=== PATIENT | female | born 1940 | race Caucasian/White ===

== ENCOUNTER → 2016-11-13 | Outpatient (CLI) | payer OTHER | END | disposition home or self-care (01) | LOC: CFH 12:29 | PROVIDERS: ATTEND Physician Assistant | DX: Z00.01 Encounter for general adult medical examination with abnormal findings (principal); Z23 Encounter for immunization; Z13.220 Encounter for screening for lipoid disorders; Z12.11 Encounter for screening for malignant neoplasm of colon; Z12.39 Encounter for other screening for malignant neoplasm of breast; M81.0 Age-related osteoporosis without current pathological fracture; G47.09 Other insomnia; I10 Essential (primary) hypertension; E03.9 Hypothyroidism, unspecified; T81.89XD Other complications of procedures, not elsewhere classified, subsequent encounter; N28.9 Disorder of kidney and ureter, unspecified; I09.9 Rheumatic heart disease, unspecified; E53.8 Deficiency of other specified B group vitamins; R93.8 Abnormal findings on diagnostic imaging of other specified body structures; Z85.3 Personal history of malignant neoplasm of breast | CPT/HCPCS: 71020 ==

== ENCOUNTER → 2017-08-20 | Outpatient (CLI) | payer OTHER | END | disposition home or self-care (01) | LOC: CFH 10:58 | PROVIDERS: ATTEND Physician Assistant | DX: Z13.820 Encounter for screening for osteoporosis (principal); M85.80 Other specified disorders of bone density and structure, unspecified site; N28.9 Disorder of kidney and ureter, unspecified; Z78.0 Asymptomatic menopausal state | CPT/HCPCS: 77080 ==

== ENCOUNTER → 2018-04-08 | Outpatient (CLI) | payer OTHER | END | disposition home or self-care (01) | LOC: CVU 10:17 | PROVIDERS: ATTEND Registered Nurse | DX: I65.23 Occlusion and stenosis of bilateral carotid arteries (principal); I10 Essential (primary) hypertension | CPT/HCPCS: 93880 ==

== ENCOUNTER → 2018-09-01 | Outpatient (CLI) | payer MEDICARE | END | disposition home or self-care (01) | LOC: CVU 10:46 | PROVIDERS: ATTEND Internal Medicine Cardiovascular Disease | DX: I08.3 Combined rheumatic disorders of mitral, aortic and tricuspid valves (principal); I10 Essential (primary) hypertension | CPT/HCPCS: 93306 ==

== ENCOUNTER 2019-03-23 12:35 | Outpatient (CLI) | payer MEDICARE | END 2019-03-23 23:59 | disposition home or self-care (01) | LOC: CVU 12:35 | PROVIDERS: ATTEND Internal Medicine Cardiovascular Disease | DX: I65.23 Occlusion and stenosis of bilateral carotid arteries (principal); I08.3 Combined rheumatic disorders of mitral, aortic and tricuspid valves; I11.0 Hypertensive heart disease with heart failure; I50.9 Heart failure, unspecified | CPT/HCPCS: 93306; 93356; 93880 ==

== ENCOUNTER 2019-12-16 13:42 | Inpatient (IN) | payer MEDICARE ==
[~2019-12-16] VITALS: Ht 167.6 cm; Wt 71.4 kg
[2019-12-16 14:48] LABS: MEAN CORPUSCULAR HEMOGLOBIN 31.6 pg (27.0-34.8); MEAN CORPUSCULAR HGB CONC 31.5 g/dL (32.4-35.8); MEAN PLATELET VOLUME 9.7 fL (7.4-10.4); PLATELET COUNT 304 x10^3/uL (130-400); RED BLOOD COUNT 4.08 x10^6/uL (3.82-5.3); RED CELL DISTRIBUTION WIDTH 15.9 % (9.6-15.2)
[2019-12-16 14:59] LABS: ALBUMIN 3.4 g/dL (3.4-5.0); CALCIUM 8.9 mg/dL (8.5-10.1); CHLORIDE 96 mmol/L (98-107)
[2019-12-16 15:02] LABS: ANION GAP 3 mmol/L (5-15)
[2019-12-16 15:18] LABS: MD YES
[2019-12-16 15:21] LABS: BAND#(MANUAL) 1.15 x10^3/uL; BANDS%(MANUAL) 9 % (0-7); BASOS#(MANUAL) 0.26 x10^3/uL (0-0.1); BASOS% (MANUAL) 2 % (0-1); EOS#(MANUAL) 0.64 x10^3/uL (0.0-0.4); EOS% (MANUAL) 5 % (1-7); LYMPH#(MANUAL) 1.79 x10^3/uL (1-3.4); LYMPHS% (MANUAL) 14 % (22-44); MONOS#(MANUAL) 0.77 x10^3/uL (0.3-2.7); MONOS% (MANUAL) 6 % (2-9); SEG#(MANUAL) 8.19 x10^3/uL (1.8-6.8); SEGS% (MANUAL) 64 % (42-75)
[2019-12-16 15:22] LABS: TARGET CELLS 1+
[2019-12-16 15:23] LABS: <PLATELET ESTIMATE> ADEQUATE; ANISOCYTOSIS 1+; HYPOCHROMIA 1+
[2019-12-16 15:24] LABS: LARGE PLATELETS 2+
[2019-12-16 16:30] LABS: MICROSCOPIC AUTO
[2019-12-16] MEDS ORDERED: SODIUM CHLORIDE 0.9% 1,000ML IVBOLUS ONE (17:00)
[2019-12-16] MEDS ORDERED: POLYETHYLENE GLYCOL 17 GM PACKET PO PRN (18:00)
[2019-12-16] MEDS ORDERED: ACETAMINOPHEN 325 MG TABLET PO PRN (18:00)
[2019-12-16] MEDS ORDERED: ONDANSETRON ODT 4 MG PO PRN (18:00)
[2019-12-16] MEDS ORDERED: BISACODYL 10 MG SUPP PR PRN (18:00)
[2019-12-16] MEDS: SODIUM CHLORIDE 0.9% 1,000 ML IV SCH (21:33)
--- NOTE | 2019-12-16 22:00 | NUR ---
REPORT FROM [facility]DA ASSUMING CARE AT THIS TIME
[2019-12-16] MEDS ORDERED: AMIT50TA PO (22:17)
--- NOTE | 2019-12-16 22:17 | NUR ---
TASK RN: PT RHETT, RESTING ON GURYOANDY, DENIES ADDITIONAL NEEDS, ANOx4, GROSS NEURO INTACT. WCT. WAITING FOR ADMIT BED, LIGHTS DIMMED FOR COMFORT. Addendum: 12/16/19 at 2218 by WINSTON WCTM NOT WCT
--- NOTE | 2019-12-16 23:18 | NUR ---
TASK RN: REPORT CALLED TO FRANKIE RN, PT CARE TO BE TRANSFERRED UPON ARRIVAL TO THE FLOOR. PT RESTING ON GURNEY, APPEARS COMFORTABLE, NAD, SKIN WARM AND DRY, NO CHANGES IN CONDITION, ANOx4, WCTM.
[2019-12-16 23:39] VITALS: BP 161/88
[2019-12-17] VITALS (9 sets, daily range): BP systolic 112–163; BP diastolic 55–85
[2019-12-17] MEDS ORDERED: METO-290 PO (00:50)
[2019-12-17] MEDS ORDERED: PRIM50TA34 PO (00:50)
[2019-12-17] MEDS ORDERED: LEVO75TA85 PO (00:50)
[2019-12-17] MEDS ORDERED: AMLO10TA8 PO (00:50)
[2019-12-17] MEDS ORDERED: ASPI-515 PO (00:57)
[2019-12-17] MEDS ORDERED: LOSA100T14 PO (00:57)
[2019-12-17 04:37] LABS: BASOPHILS % (AUTO) 2 % (0-1); EOSINOPHILS % (AUTO) 6 % (1-7); LYMPHOCYTES % (AUTO) 14 % (22-44); MEAN CORPUSCULAR HEMOGLOBIN 32.6 pg (27.0-34.8); MEAN CORPUSCULAR HGB CONC 32.9 g/dL (32.4-35.8); MONOCYTES % (AUTO) 10 % (2-9); NEUTROPHILS % (AUTO) 68 % (42-75); PLATELET COUNT 295 x10^3/uL (130-400); RED BLOOD COUNT 3.99 x10^6/uL (3.82-5.3); RED CELL DISTRIBUTION WIDTH 15.9 % (9.6-15.2)
[2019-12-17 04:50] LABS: ANION GAP 6 mmol/L (5-15); CALCIUM 8.6 mg/dL (8.5-10.1); CHLORIDE 102 mmol/L (98-107)
[2019-12-17 04:52] LABS: CREATININE 0.91 mg/dL (0.55-1.02)
[2019-12-17 05:44] LABS: MD SCAN
[2019-12-17] MEDS: ASPIRIN 81 MG TABLET EC PO SCH (09:00)
[2019-12-17] MEDS ORDERED: LOSARTAN 25MG TABLET PO SCH (09:00)
[2019-12-17] MEDS: SENNA/DOCUSATE TABLET PO SCH (10:07)
[2019-12-17] MEDS: SODIUM CHLORIDE 0.9% 1,000 ML IV SCH ×2 (10:07→20:19)
[2019-12-17] MEDS: AMLODIPINE 5 MG TABLET PO SCH ×2 (10:08→20:18)
[2019-12-17] MEDS: METOPROLOL SUCCINATE 100 MG TAB.ER.24H PO SCH (10:08)
[2019-12-17] MEDS: LEVOTHYROXINE 75 MCG TABLET PO SCH (10:10)
[2019-12-17] MEDS: AMITRIPTYLINE 50 MG TABLET PO SCH (20:18)
[2019-12-17] MEDS: LOSARTAN 100 MG TAB PO SCH (20:20)
[2019-12-17] MEDS: PRIMIDONE 50 MG TABLET PO SCH (20:25)
[2019-12-18] VITALS (8 sets, daily range): BP systolic 72–147; BP diastolic 68–78
[2019-12-18 04:31] LABS: MEAN CORPUSCULAR HEMOGLOBIN 32.3 pg (27.0-34.8); MEAN CORPUSCULAR HGB CONC 32.4 g/dL (32.4-35.8); MEAN PLATELET VOLUME 10.2 fL (7.4-10.4); PLATELET COUNT 261 x10^3/uL (130-400); RED BLOOD COUNT 3.76 x10^6/uL (3.82-5.3); RED CELL DISTRIBUTION WIDTH 16.2 % (9.6-15.2)
[2019-12-18 04:46] LABS: ANION GAP 5 mmol/L (5-15); CALCIUM 8.1 mg/dL (8.5-10.1); CHLORIDE 106 mmol/L (98-107); CREATININE 0.84 mg/dL (0.55-1.02)
[2019-12-18 05:51] LABS: MD YES
[2019-12-18 05:53] LABS: ANISOCYTOSIS 1+; BAND#(MANUAL) 0.88 x10^3/uL; BANDS%(MANUAL) 6 % (0-7); BASOS#(MANUAL) 0.29 x10^3/uL (0-0.1); BASOS% (MANUAL) 2 % (0-1); EOS#(MANUAL) 1.18 x10^3/uL (0.0-0.4); EOS% (MANUAL) 8 % (1-7); LYMPH#(MANUAL) 1.76 x10^3/uL (1-3.4); LYMPHS% (MANUAL) 12 % (22-44); MONOS#(MANUAL) 0.74 x10^3/uL (0.3-2.7); MONOS% (MANUAL) 5 % (2-9); SEG#(MANUAL) 9.85 x10^3/uL (1.8-6.8); SEGS% (MANUAL) 67 % (42-75)
[2019-12-18 05:54] LABS: POLYCHROMASIA 1+
[2019-12-18 05:56] LABS: <PLATELET ESTIMATE> ADEQUATE; GIANT PLATELETS 1+; LARGE PLATELETS 2+
[2019-12-18 09:05] LABS: HCT (SEDRATE) 37.5 % (34.6-47.8)
[2019-12-18] MEDS: ASPIRIN 81 MG TABLET EC PO SCH (09:22)
[2019-12-18] MEDS: AMLODIPINE 5 MG TABLET PO SCH (09:22)
[2019-12-18] MEDS: SENNA/DOCUSATE TABLET PO SCH (09:22)
[2019-12-18] MEDS: METOPROLOL SUCCINATE 100 MG TAB.ER.24H PO SCH (09:22)
[2019-12-18] MEDS: LEVOTHYROXINE 75 MCG TABLET PO SCH (09:23)
[2019-12-18] MEDS: CEPHALEXIN 500 MG CAPSULE PO SCH ×4 (09:23→21:12)
[2019-12-18] MEDS ORDERED: METOPROLOL 1 MG/ML, 5ML IVPush ONE (15:30)
[2019-12-18] MEDS ORDERED: OMNIPAQUE 350 MG/ML, 100ML BOTTLE ONE (15:30)
[2019-12-18] MEDS: AMITRIPTYLINE 50 MG TABLET PO SCH (21:12)
[2019-12-18] MEDS: PRIMIDONE 50 MG TABLET PO SCH (21:12)
[2019-12-18] MEDS: LOSARTAN 100 MG TAB PO SCH (21:12)
[2019-12-19 00:37] VITALS: BP 117/78
[2019-12-19 04:56] LABS: BASOPHILS % (AUTO) 2 % (0-1); EOSINOPHILS % (AUTO) 7 % (1-7); LYMPHOCYTES % (AUTO) 13 % (22-44); MEAN CORPUSCULAR HEMOGLOBIN 32.2 pg (27.0-34.8); MEAN CORPUSCULAR HGB CONC 31.8 g/dL (32.4-35.8); MEAN PLATELET VOLUME 10.3 fL (7.4-10.4); MONOCYTES % (AUTO) 9 % (2-9); NEUTROPHILS % (AUTO) 69 % (42-75); PLATELET COUNT 272 x10^3/uL (130-400); RED BLOOD COUNT 3.85 x10^6/uL (3.82-5.3); RED CELL DISTRIBUTION WIDTH 16.1 % (9.6-15.2)
[2019-12-19 05:05] LABS: ALANINE AMINOTRANSFERASE 24 U/L (12-78); ALBUMIN 3.1 g/dL (3.4-5.0); ANION GAP 5 mmol/L (5-15); CALCIUM 8.4 mg/dL (8.5-10.1); CHLORIDE 102 mmol/L (98-107); CREATININE 0.87 mg/dL (0.55-1.02)
[2019-12-19 05:07] LABS: ALKALINE PHOSPHATASE 133 U/L (45-117); BILIRUBIN,TOTAL 0.4 mg/dL (0.2-1.0); TOTAL PROTEIN 7.3 g/dL (6.4-8.2)
[2019-12-19 06:16] LABS: MD SCAN
[2019-12-19] MEDS: CEPHALEXIN 500 MG CAPSULE PO SCH ×2 (06:30→11:12)
[2019-12-19 06:51] VITALS: BP 127/82
[2019-12-19 06:53] VITALS: BP 108/71
[2019-12-19 06:57] VITALS: BP 90/42
[2019-12-19] MEDS: SENNA/DOCUSATE TABLET PO SCH (08:22)
[2019-12-19] MEDS: ASPIRIN 81 MG TABLET EC PO SCH (08:22)
[2019-12-19] MEDS: LEVOTHYROXINE 75 MCG TABLET PO SCH (08:23)
[2019-12-19] MEDS ORDERED: METOPROLOL SUCCINATE 50 MG TAB.ER.24H PO SCH (09:00)
[2019-12-19] MEDS ORDERED: DOXY100T PO (09:33)
[2019-12-19] MEDS ORDERED: CEPH-376 PO (09:33)
[2019-12-19] MEDS ORDERED: METO100T5 PO (09:47)
[2019-12-19] MEDS ORDERED: APIX5TAB PO (09:47)
== END 2019-12-19 12:00 | disposition home or self-care (01) | DRG 690 ==
LOC: ED 14:47 → EDIP 16:38 → 5SO 23:15 → 4WST 12-17 18:20
PROVIDERS: ADMIT Family Medicine; ATTEND Internal Medicine
DX: N39.0 Urinary tract infection, site not specified (principal); E87.1 Hypo-osmolality and hyponatremia; E03.9 Hypothyroidism, unspecified; E04.1 Nontoxic single thyroid nodule; E86.1 Hypovolemia; G47.00 Insomnia, unspecified; H54.7 Unspecified visual loss; I08.1 Rheumatic disorders of both mitral and tricuspid valves; I10 Essential (primary) hypertension; I48.0 Paroxysmal atrial fibrillation; I80.8 Phlebitis and thrombophlebitis of other sites; B95.5 Unspecified streptococcus as the cause of diseases classified elsewhere; K59.00 Constipation, unspecified; W18.39XA Other fall on same level, initial encounter; Y93.89 Activity, other specified; Y92.89 Other specified places as the place of occurrence of the external cause; Y99.8 Other external cause status; Z85.3 Personal history of malignant neoplasm of breast; Z86.73 Personal history of transient ischemic attack (TIA), and cerebral infarction without residual deficits; Z90.710 Acquired absence of both cervix and uterus; Z90.81 Acquired absence of spleen
CPT/HCPCS: 36415; 70450; 71045; 71250; 74177; 80048; 80053; 81001; 82040; 82607; 83735; 84145; 84443; 85025; 85651; 86140; 87040; 87086; 87147; 93005; 93306; 93880; 96374; 99285; G0378; Q9967; J7030

== ENCOUNTER 2020-01-06 10:09 | Day surgery (SDC) | payer MEDICARE ==
[~2020-01-06 10:09] MED LIST: AMIT50TA PO; AMLO-211 PO; APIX5TAB PO; ASPI-515 PO; CEPH-376 PO; DOXY100T PO; LEVO75TA85 PO; LOSA100T14 PO; METO-290 PO; METO100T5 PO; PRIM50TA34 PO; PROPOFOL 10 MG/ML, 20ML ONE
== END 2020-01-06 14:11 | disposition home or self-care (01) ==
LOC: CACL 10:09
PROVIDERS: ATTEND Internal Medicine Clinical Cardiac Electrophysiology
DX: I48.91 Unspecified atrial fibrillation (principal); Z53.8 Procedure and treatment not carried out for other reasons; I10 Essential (primary) hypertension; I34.0 Nonrheumatic mitral (valve) insufficiency; Z79.01 Long term (current) use of anticoagulants; Z79.890 Hormone replacement therapy; Z79.899 Other long term (current) drug therapy
CPT/HCPCS: 93005; J2704